=== PATIENT | male | born 1940 | race Caucasian/White ===

== ENCOUNTER 2017-12-11 08:20 | Emergency (ER) | payer MEDICARE ==
[~2017-12-11] VITALS: Ht 172.7 cm; Wt 109.1 kg
[~2017-12-11 08:20] MED LIST: ASPIRIN 32325 MG/TA1 PO; BETAPACE 80MG80 MG PO
[2017-12-11 08:24] VITALS: TEMP 98.6
[2017-12-11] MEDS ORDERED: HYDROXYURE500 MG/CAP PO (08:33)
[2017-12-11] MEDS ORDERED: COUMADIN 22.5 MG/TAB PO (08:34)
[2017-12-11] MEDS ORDERED: NORCO 325 MG-51 TAB PO (09:36)
[2017-12-11 10:07] VITALS: BP 157/98; PULSE 90
== END 2017-12-11 10:05 | disposition home or self-care (01) ==
LOC: COL.ER 08:20
DX: S52.502A Unspecified fracture of the lower end of left radius, initial encounter for closed fracture (principal); I48.91 Unspecified atrial fibrillation; Z79.01 Long term (current) use of anticoagulants; W01.10XA Fall on same level from slipping, tripping and stumbling with subsequent striking against unspecified object, initial encounter; Y92.830 Public park as the place of occurrence of the external cause
CPT/HCPCS: Q4050